=== PATIENT | male | born 1955 | race Caucasian/White ===

== ENCOUNTER → 2023-05-07 | Outpatient (CLI) | payer MEDICARE, BC ==
[2023-05-07 11:46] LABS: BUN/Creat Ratio 19.46 Ratio (12.00-20.00); Blood Urea Nitrogen 25.3 mg/dL (9.0-27.0); Chloride 96 mmol/L (96-109); Chol/HDL Ratio 3.39 Ratio; Glucose 207 mg/dL (70-110); LDL Cholesterol,Calculated 64.2 mg/dL (0.0-131.0); Potassium 4.5 mmol/L (3.5-5.5); Sodium 137 mmol/L (135-145)
[2023-05-07 11:47] LABS: ALT 32 U/L (10-49); AST 20 U/L (14-35); Albumin 4.7 d/dL (3.8-4.9); Albumin/Globulin Ratio 1.96 Ratio (1.60-3.17); Alkaline Phosphatase 55 U/L (41-126); Calcium 9.5 mg/dL (8.7-10.3); Carbon Dioxide 27.4 mmol/L (21.6-31.8); Globulin 2.4 d/dL (1.6-3.3); Total Bilirubin 0.4 mg/dL (0.3-1.2); Total Protein 7.1 d/dL (6.2-8.2)
[2023-05-07 13:57] LABS: Urine Creatinine 59.3 mg/dL (39.0-259.0)
== END | disposition home or self-care (01) ==
LOC: LABWHC1 07:02
PROVIDERS: ATTEND Internal Medicine Endocrinology, Diabetes & Metabolism
DX: E11.65 Type 2 diabetes mellitus with hyperglycemia (principal)
CPT/HCPCS: 36415; 80053; 80061; 82043; 82570; 83036; 84443

== ENCOUNTER → 2023-09-08 | Outpatient (CLI) | payer MEDICARE, BC ==
[2023-09-08 15:02] LABS: ALT 24 U/L (10-49); AST 18 U/L (14-35); Albumin 4.6 g/dL (3.8-4.9); Alkaline Phosphatase 49 U/L (41-126); BUN/Creat Ratio 17.91 Ratio (12.00-20.00); Blood Urea Nitrogen 19.7 mg/dL (9.0-27.0); Calcium 9.5 mg/dL (8.7-10.3); Carbon Dioxide 29.4 mmol/L (21.6-31.8); Chloride 102 mmol/L (96-109); Globulin 2.3 g/dL (1.6-3.3); Glucose 191 mg/dL (70-110); Potassium 4.2 mmol/L (3.5-5.5); Sodium 142 mmol/L (135-145); Total Bilirubin 0.4 mg/dL (0.3-1.2); Total Protein 6.9 g/dL (6.2-8.2)
[2023-09-08 20:05] LABS: C-Peptide 4.05 ng/mL (0.81-3.85)
== END | disposition home or self-care (01) ==
LOC: LABWHC1 07:23
PROVIDERS: ATTEND Internal Medicine Endocrinology, Diabetes & Metabolism
DX: E11.65 Type 2 diabetes mellitus with hyperglycemia (principal)
CPT/HCPCS: 36415; 80053; 84681

== ENCOUNTER → 2024-10-12 | Outpatient (CLI) | payer MEDICARE, BC ==
[2024-10-12 12:57] LABS: ALT 37 U/L (10-49); AST 20 U/L (14-35); Albumin 4.3 g/dL (3.8-4.9); Albumin/Globulin Ratio 1.72 Ratio (1.60-3.17); Alkaline Phosphatase 47 U/L (41-126); BUN/Creat Ratio 22.92 Ratio (12.00-20.00); Blood Urea Nitrogen 27.5 mg/dL (9.0-27.0); Calcium 9.5 mg/dL (8.7-10.3); Carbon Dioxide 25.1 mmol/L (21.6-31.8); Chloride 100 mmol/L (96-109); Chol/HDL Ratio 2.46 Ratio; Globulin 2.5 g/dL (1.6-3.3); Glucose 206 mg/dL (70-110); Potassium 4.1 mmol/L (3.5-5.5); Sodium 139 mmol/L (135-145); Total Bilirubin 0.6 mg/dL (0.3-1.2); Total Protein 6.8 g/dL (6.2-8.2)
== END | disposition home or self-care (01) ==
LOC: LABWHC1 07:07
PROVIDERS: ATTEND Internal Medicine Endocrinology, Diabetes & Metabolism
DX: E11.65 Type 2 diabetes mellitus with hyperglycemia (principal)
CPT/HCPCS: 36415; 80053; 80061; 82043; 82570; 83036; 84443